=== PATIENT | male | born 1990 | race Caucasian/White ===

== ENCOUNTER 2016-09-11 09:34 | Emergency (ER) | payer SELFPAY ==
[~2016-09-11] VITALS: Ht 175.3 cm; Wt 75.0 kg
[2016-09-11 10:55] VITALS: BP 128/72
== END 2016-09-11 11:06 | disposition home or self-care (01) ==
LOC: ER 09:46
DX: Z02.89 Encounter for other administrative examinations (principal)
CPT/HCPCS: 99283

== ENCOUNTER 2020-05-22 20:56 | Emergency (ER) | payer MEDICAID ==
[~2020-05-22] VITALS: Ht 172.7 cm; Wt 82.0 kg
[2020-05-23 05:24] LABS: CHLORIDE 105 mEq/L (98-107); HEMATOCRIT. 47.9 % (42.0-52.0); HEMOGLOBIN. 16.2 g/dL (14.0-18.0); MEAN CORPUSCULAR HEMOGLOBIN 32.2 pg (28.0-32.0); MEAN CORPUSCULAR VOLUME 95.2 fL (80.0-94.0); PLATELET 251 x1000/uL (130-400); RED BLOOD CELL COUNT 5.03 mill/uL (4.7-6.1)
[2020-05-23 06:11] LABS: ATYPICAL LYMPHOCYTES 3; PLATELET ESTIMATE NORMAL
[2020-05-23 07:03] VITALS: BP 115/69
== END 2020-05-23 07:05 | disposition home or self-care (01) ==
LOC: ER 20:56
DX: I11.0 Hypertensive heart disease with heart failure (principal); I50.9 Heart failure, unspecified; F12.10 Cannabis abuse, uncomplicated; F17.200 Nicotine dependence, unspecified, uncomplicated; Z91.018 Allergy to other foods
CPT/HCPCS: 36415; 71045; 80053; 83880; 84484; 85025; 93005; 99285